=== PATIENT | male | born 1955 | race Caucasian/White ===

== ENCOUNTER 2022-11-01 09:48 | Emergency (ER) | payer MEDICARE ==
[~2022-11-01] VITALS: Ht 170.2 cm; Wt 78.0 kg
[2022-11-01 10:04] VITALS: BP 179/85
[2022-11-01] MEDS ORDERED: HYDROcodone/acetaminophen 5mg/325mg tablet PO ONE (11:15)
[2022-11-01] MEDS ORDERED: colchicine 0.6mg tablet PO ONE (11:15)
[2022-11-01] MEDS ORDERED: HYDR-3965 PO (11:19)
[2022-11-01] MEDS ORDERED: COLC0.6T72 PO (11:19)
== END 2022-11-01 11:45 | disposition home or self-care (01) ==
LOC: ER 09:48
DX: M79.671 Pain in right foot (principal)
CPT/HCPCS: 99283